=== PATIENT | female | born 2000 | race African-American/Black ===

== ENCOUNTER 2019-08-20 06:19 | Inpatient (IN) ==
[2019-08-20] MEDS ORDERED: BUTORPHANOL 1 MG/ML VIAL IV PRN (07:01)
[2019-08-20] MEDS ORDERED: MEPERIDINE 50 MG/1 ML VIAL IV PRN (07:01)
[2019-08-20] MEDS ORDERED: ONDANSETRON 4 MG/2 ML VIAL IV PRN (07:01)
[2019-08-20] MEDS ORDERED: BUTORPHANOL 2 MG/ML VIAL IV PRN (07:01)
[2019-08-20] MEDS ORDERED: DINOPROSTONE VAG GEL 10 MG SYRINGE VAG ONE ×2 (07:03→14:45)
[2019-08-20 07:27] LABS: Basophils % 0.3 % (0.0-0.8); Eosinophils # 0.2 10*3/uL (0.0-0.87); Eosinophils % 2.9 % (0.00-10.9); Hematocrit 35.2 VOL% (35.7-47.0); Hemoglobin 11.7 GM/DL (12.0-16.0); Immature Granulocytes % 1.5 %; Immature Granulocytes Absolute 0.09 #; Lymphocytes # 1.8 10*3/uL (1.4-4.0); Lymphocytes % 28.4 % (21.3-54.2); Mean Corpuscular HGB Conc 33.2 GM/DL (32-36); Mean Corpuscular Volume 95.7 FL (87-102); Mean Platelet Volume 10.3 FL (9.6-12.0); Monocytes % 6.8 % (1.7-12.7); Neutrophils % 60.1 % (38.7-73.9); Platelet Count 242 T/CUMM (130-400); Red Blood Count 3.68 MC/CUMM (3.8-5.5); Red Cell Distribution Width 13.4 % (9.3-17.3); White Blood Count 6.2 T/CUMM (4-12)
[2019-08-20 07:54] LABS: Albumin 2.4 G/DL (3.4-5.0); Bilirubin,Total 0.5 MG/DL (0.2-1.0); Calcium 8.3 MG/DL (8.5-10.1); Osmolality,Calculated 272.5 MOS/KG (273-304); Total Protein 6.2 G/DL (6.4-8.3); Uric Acid 4.7 MG/DL (2.6-6.0)
[2019-08-20] MEDS ORDERED: INFLUENZA VIRUS VACCINE 0.5 ML SYRINGE IM ONE (07:57)
[2019-08-20] MEDS ORDERED: OXYTOCIN/LR 20 UNIT/1,000 ML BAG IV SCH (14:00)
[2019-08-21] MEDS ORDERED: OXYTOCIN/LR 20 UNIT/1,000 ML BAG IV SCH
[2019-08-21] MEDS: LACTATED RINGERS 1,000 ML IV SCH ×3 (00:06→12:14)
[2019-08-21] MEDS ORDERED: ePHEDrine 50 MG/ML AMP IV PRN (09:26)
[2019-08-21] MEDS ORDERED: FAMOTIDINE 20 MG/2 ML VIAL IV ONE (09:26)
[2019-08-21] MEDS ORDERED: PROMETHAZINE 25 MG/1 ML VIAL IM ONE (09:26)
[2019-08-21] MEDS ORDERED: hydrOXYzine HCL 25 MG/1 ML VIAL IM PRN (09:26)
[2019-08-21] MEDS ORDERED: CITRIC ACID/SODIUM CITRATE 30 ML UDCUP PO ONE (09:26)
[2019-08-21] MEDS ORDERED: diphenhydrAMINE 50 MG/1 ML VIAL IV PRN ×2 (09:26)
[2019-08-21] MEDS ORDERED: NALOXONE 0.4 MG/ML VIAL IV PRN (09:26)
[2019-08-21] MEDS ORDERED: fentaNYL 2 MCG/ROPIV 0.2% EPID 100 ML EPIDURAL SCH (09:30)
[2019-08-21 13:21] LABS: Apearance,Urine CLEAR (Clear); Bacteria,Urine Occasional /HPF (Few); Bilirubin,Urine Negative (Negative); Blood, Urine Negative (Negative); Glucose,Urine (UA) Negative (Negative); Ketones,Urine 80 mg/dL (Negative); Mucus,Urine Many /LPF (Occasional); Nitrite,Urine Negative (Negative); Protein,Urine 100 MG/DL; RBC,Urine 5 /HPF (0-4); Squamous Epithelial Cell,Urine Occasional /HPF (0-10); Urine Specific Gravity 1.024 (1.001-1.035); WBC,Urine 1 /HPF (0-6)
[2019-08-21 13:22] LABS: Urine Color Yellow (Yellow)
[2019-08-21] MEDS ORDERED: OXYTOCIN/LR 0 UNIT/0 ML BAG IV ONE (15:35)
[2019-08-21] MEDS ORDERED: miSOPROStoL 200 MCG TABLET ONE (15:35)
[2019-08-21] MEDS ORDERED: METHYLERGONOVINE 0.2 MG/1 ML AMP ONE (15:36)
[2019-08-21] MEDS ORDERED: CARBOPROST TROMETHAMINE 250 MCG/ML AMP IM ONE (15:36)
[2019-08-21] MEDS ORDERED: OXYTOCIN/LR 30 UNIT/1,000 ML BAG IV ONE (15:36)
[2019-08-21] MEDS ORDERED: miSOPROStoL 200 MCG TABLET VAG ONE (17:11)
[2019-08-21 17:31] LABS: Cord Venous Blood PCO2 31.8 MMHG; Cord Venous Blood PO2 39.2 MMHG
[2019-08-21] MEDS ORDERED: DIPH/TET/ACEL PERT BOOSTER VACCINE 0.5 ML VIAL IM ONE (19:28)
[2019-08-21] MEDS ORDERED: WITCH HAZEL PADS 100/JAR TOP PRN (19:28)
[2019-08-21] MEDS ORDERED: oxyCODONE/ACETAMINOPHEN 5-325 MG TABLET PO PRN (19:28)
[2019-08-21] MEDS ORDERED: IBUPROFEN 800 MG TABLET PO PRN (19:28)
[2019-08-21] MEDS ORDERED: ACETAMINOPHEN 325 MG TABLET PO PRN (19:28)
[2019-08-21] MEDS ORDERED: MEASLES/MUMPS/RUBELLA VACCINE 0.5 ML VIAL SUBCUT ONE (19:28)
[2019-08-21] MEDS ORDERED: HYDROCORTISONE 2.5% RECTAL CREAM 30 GM TUBE TOP PRN (19:28)
[2019-08-21] MEDS ORDERED: LANOLIN 50% CREAM 0.3 OZ TUBE TOP PRN (19:28)
[2019-08-21] MEDS ORDERED: RHO(D) IMMUNE GLOBULIN 300 MCG SYRINGE IM ONE (19:28)
[2019-08-21] MEDS ORDERED: BENZOCAINE 20%/MENTHOL 0.5% SPRAY 56 GM CAN TOP PRN (19:28)
[2019-08-21] MEDS ORDERED: BISACODYL 10 MG SUPP RECTAL PRN (19:28)
[2019-08-21] MEDS: DOCUSATE SODIUM 100 MG CAPSULE PO SCH (20:50)
[2019-08-22] MEDS: oxyCODONE/ACETAMINOPHEN 5-325 MG TABLET PO PRN ×2 (06:09→14:39)
[2019-08-22] MEDS: DOCUSATE SODIUM 100 MG CAPSULE PO SCH ×2 (09:17→22:01)
[2019-08-22 10:01] LABS: Basophils % 0.2 % (0.0-0.8); Eosinophils # 0.1 10*3/uL (0.0-0.87); Eosinophils % 0.8 % (0.00-10.9); Hemoglobin 10.1 GM/DL (12.0-16.0); Immature Granulocytes % 1.5 %; Immature Granulocytes Absolute 0.18 #; Lymphocytes # 1.7 10*3/uL (1.4-4.0); Lymphocytes % 14.7 % (21.3-54.2); Mean Corpuscular HGB Conc 32.6 GM/DL (32-36); Mean Corpuscular Volume 97.2 FL (87-102); Mean Platelet Volume 10.5 FL (9.6-12.0); Monocytes % 5.9 % (1.7-12.7); Neutrophils % 76.9 % (38.7-73.9); Platelet Count 216 T/CUMM (130-400); Red Blood Count 3.19 MC/CUMM (3.8-5.5); Red Cell Distribution Width 13.2 % (9.3-17.3); White Blood Count 11.6 T/CUMM (4-12)
[2019-08-23] MEDS: oxyCODONE/ACETAMINOPHEN 5-325 MG TABLET PO PRN (03:15)
[2019-08-23] MEDS: DOCUSATE SODIUM 100 MG CAPSULE PO SCH (09:12)
[2019-08-23 13:41] VITALS: BP 126/72
== END 2019-08-23 13:00 | disposition home or self-care (01) | DRG 560 ==
LOC: N.LDOUT 06:19 → N.LD 06:21 → N.OB 08-22 09:26
PROVIDERS: ADMIT Obstetrics & Gynecology; ATTEND Obstetrics & Gynecology

== ENCOUNTER 2020-09-29 02:59 | Inpatient (IN) ==
[2020-09-29] MEDS ORDERED: MEPERIDINE 50 MG/1 ML VIAL IV PRN (03:21)
[2020-09-29] MEDS ORDERED: ONDANSETRON 4 MG/2 ML VIAL IV PRN (03:21)
[2020-09-29] MEDS ORDERED: FAMOTIDINE 20 MG/2 ML VIAL IV PRN (03:21)
[2020-09-29] MEDS ORDERED: BUTORPHANOL 2 MG/ML VIAL IV PRN (03:21)
[2020-09-29] MEDS ORDERED: OXYTOCIN/LR 20 UNIT/1,000 ML BAG IV SCH (03:30)
[2020-09-29] MEDS ORDERED: CITRIC ACID/SODIUM CITRATE 30 ML UDCUP ONE (03:40)
[2020-09-29] MEDS ORDERED: fentaNYL 2 MCG/ROPIV 0.2% EPID 100 ML EPIDURAL ONE (03:40)
[2020-09-29] MEDS ORDERED: ePHEDrine 50 MG/ML VIAL ONE (03:41)
[2020-09-29 03:47] LABS: Basophils % 0.5 % (0.0-0.8); Eosinophils # 0.3 10*3/uL (0.0-0.87); Eosinophils % 3.1 % (0.00-10.9); Hematocrit 36.6 VOL% (35.7-47.0); Hemoglobin 12.6 GM/DL (12.0-16.0); Immature Granulocytes % 1.5 %; Immature Granulocytes Absolute 0.13 #; Lymphocytes # 2.3 10*3/uL (1.4-4.0); Lymphocytes % 26.9 % (21.3-54.2); Mean Corpuscular HGB Conc 34.4 GM/DL (32-36); Mean Corpuscular Volume 98.1 FL (87-102); Monocytes % 3.8 % (1.7-12.7); Neutrophils % 64.2 % (38.7-73.9); Platelet Count 232 T/CUMM (130-400); Red Blood Count 3.73 MC/CUMM (3.8-5.5); Red Cell Distribution Width 15.3 % (9.3-17.3); White Blood Count 8.7 T/CUMM (4-12)
[2020-09-29 04:09] LABS: Albumin 2.8 G/DL (3.4-5.0); Bilirubin,Total 0.5 MG/DL (0.2-1.0); Calcium 8.3 MG/DL (8.5-10.1); Osmolality,Calculated 270.7 MOS/KG (273-304); Total Protein 6.9 G/DL (6.4-8.3)
[2020-09-29] MEDS: LACTATED RINGERS 1,000 ML IV SCH ×2 (04:13→08:21)
[2020-09-29] MEDS ORDERED: CITRIC ACID/SODIUM CITRATE 30 ML UDCUP PO ONE (04:15)
[2020-09-29 04:30] LABS: Hepatitis B Surface Ag Quant < 0.10 Index; Hepatitis B Surface Ag Result Negative (Negative)
[2020-09-29 05:00] LABS: HIV Antigen/Antibody Result Nonreactive (Nonreactive)
[2020-09-29] MEDS ORDERED: ACETAMINOPHEN 500 MG TABLET PO PRN (05:16)
[2020-09-29 07:05] LABS: Bacteria,Urine Occasional /HPF (Few); Bilirubin,Urine Negative (Negative); Blood, Urine Negative (Negative); Glucose,Urine (UA) 50 mg/dL (Negative); Granular Casts,Urine 5 /LPF (0-1); Hyaline Casts,Urine 1 /LPF (0-3); Ketones,Urine 20 mg/dL (Negative); Mucus,Urine Few /LPF (Occasional); Nitrite,Urine Negative (Negative); Protein,Urine 100 MG/DL; RBC,Urine 1 /HPF (0-4); Renal Epithelial Cells,Urine Occasional /HPF (<1); Squamous Epithelial Cell,Urine Occasional /HPF (0-10); Urine Appearance CLEAR (Clear); Urine Color Yellow (Yellow); Urine Specific Gravity 1.014 (1.001-1.035); WBC,Urine 2 /HPF (0-6)
[2020-09-29] MEDS ORDERED: LIDOCAINE 1% 50 ML VIAL ONE (12:11)
[2020-09-29] MEDS ORDERED: miSOPROStoL 200 MCG TABLET ONE (12:11)
[2020-09-29] MEDS ORDERED: METHYLERGONOVINE 0.2 MG/1 ML AMP ONE (12:12)
[2020-09-29 14:01] LABS: Cord Venous Blood HCO3 22.2 MMOL/L; Cord Venous Blood PO2 35.7
[2020-09-29] MEDS ORDERED: IBUPROFEN 800 MG TABLET PO ONE (15:13)
[2020-09-29] MEDS ORDERED: OXYTOCIN/LR 20 UNIT/1,000 ML BAG IV ONE ×2 (16:18→16:52)
[2020-09-29] MEDS ORDERED: DIPH/TET/ACEL PERT BOOSTER VACCINE 0.5 ML VIAL IM ONE (16:52)
[2020-09-29] MEDS ORDERED: BISACODYL 10 MG SUPP RECTAL PRN (16:52)
[2020-09-29] MEDS ORDERED: oxyCODONE/ACETAMINOPHEN 5-325 MG TABLET PO PRN (16:52)
[2020-09-29] MEDS ORDERED: LANOLIN 50% CREAM 0.3 OZ TUBE TOP PRN (16:52)
[2020-09-29] MEDS ORDERED: ACETAMINOPHEN 325 MG TABLET PO PRN (16:52)
[2020-09-29] MEDS ORDERED: BENZOCAINE 20%/MENTHOL 0.5% SPRAY 56 GM CAN TOP PRN (16:52)
[2020-09-29] MEDS ORDERED: HYDROCORTISONE 2.5% RECTAL CREAM 30 GM TUBE TOP PRN (16:52)
[2020-09-29] MEDS ORDERED: MEASLES/MUMPS/RUBELLA VACCINE 0.5 ML VIAL SUBCUT ONE (16:52)
[2020-09-29] MEDS ORDERED: WITCH HAZEL PADS 100/JAR TOP PRN (16:52)
[2020-09-29] MEDS ORDERED: RHO(D) IMMUNE GLOBULIN 300 MCG SYRINGE IM ONE (16:52)
[2020-09-29] MEDS: oxyCODONE/ACETAMINOPHEN 5-325 MG TABLET PO PRN ×2 (17:10→22:41)
[2020-09-29] MEDS: DOCUSATE SODIUM 100 MG CAPSULE PO SCH ×2 (19:39→21:45)
[2020-09-29] MEDS: IBUPROFEN 800 MG TABLET PO PRN (21:45)
[2020-09-30] MEDS: IBUPROFEN 800 MG TABLET PO PRN ×3 (04:26→16:59)
[2020-09-30] MEDS: oxyCODONE/ACETAMINOPHEN 5-325 MG TABLET PO PRN ×4 (04:27→23:05)
[2020-09-30 04:40] LABS: Basophils % 0.1 % (0.0-0.8); Eosinophils % 0.2 % (0.00-10.9); Hematocrit 30.7 VOL% (35.7-47.0); Hemoglobin 10.1 GM/DL (12.0-16.0); Immature Granulocytes % 1.8 %; Immature Granulocytes Absolute 0.16 #; Lymphocytes # 1.7 10*3/uL (1.4-4.0); Lymphocytes % 18.9 % (21.3-54.2); Mean Corpuscular HGB Conc 32.9 GM/DL (32-36); Mean Corpuscular Volume 99.7 FL (87-102); Platelet Count 199 T/CUMM (130-400); Red Blood Count 3.08 MC/CUMM (3.8-5.5); Red Cell Distribution Width 15.1 % (9.3-17.3); White Blood Count 8.7 T/CUMM (4-12)
[2020-09-30] MEDS: DOCUSATE SODIUM 100 MG CAPSULE PO SCH ×2 (08:21→21:03)
[2020-09-30] MEDS: FERROUS SULFATE 325 MG TABLET PO SCH (08:21)
[2020-10-01] MEDS: IBUPROFEN 800 MG TABLET PO PRN ×2 (00:59→10:29)
[2020-10-01] MEDS: oxyCODONE/ACETAMINOPHEN 5-325 MG TABLET PO PRN (05:51)
[2020-10-01 07:14] VITALS: BP 126/67
[2020-10-01] MEDS: FERROUS SULFATE 325 MG TABLET PO SCH (08:21)
[2020-10-01] MEDS: DOCUSATE SODIUM 100 MG CAPSULE PO SCH (08:21)
== END 2020-10-01 11:05 | disposition home or self-care (01) | DRG 560 ==
LOC: N.LDOUT 02:59 → N.LD 03:02 → N.OB 16:44
PROVIDERS: ADMIT Obstetrics & Gynecology; ATTEND Obstetrics & Gynecology

== ENCOUNTER 2020-10-02 20:02 | Observation (INO) ==
[2020-10-02] MEDS ORDERED: ONDANSETRON 4 MG/2 ML VIAL IV ONE (21:17)
[2020-10-02] MEDS ORDERED: MORPHINE 4 MG/1 ML VIAL IV STA (21:17)
[2020-10-02] MEDS ORDERED: SODIUM CHLORIDE 0.9% 1,000 ML IV STA (21:17)
[2020-10-02] MEDS ORDERED: ONDANSETRON 4 MG/2 ML VIAL IV PRN (22:57)
[2020-10-02] MEDS ORDERED: DEXTROSE 5% LACTATED RINGERS 1,000 ML IV SCH (23:00)
[2020-10-02] MEDS ORDERED: KETOROLAC 30 MG/1 ML VIAL IV PRN (23:05)
[2020-10-03 01:13] VITALS: BP 125/87
[2020-10-03 02:32] LABS: Bacteria,Urine Occasional /HPF (Few); Bilirubin,Urine Negative (Negative); Blood, Urine Large mg/dL (Negative); Glucose,Urine (UA) Negative (Negative); Ketones,Urine Negative (Negative); Mucus,Urine Occasional /LPF (Occasional); Nitrite,Urine Negative (Negative); Protein,Urine Negative; RBC,Urine 349 /HPF (0-4); Squamous Epithelial Cell,Urine Occasional /HPF (0-10); Urine Appearance CLEAR (Clear); Urine Color Yellow (Yellow); Urine Specific Gravity 1.011 (1.001-1.035); Urine Urobilinogen < 2.0 EU/DL (0.2-1.0); WBC,Urine 12 /HPF (0-6)
[2020-10-03 06:33] LABS: Basophils % 0.3 % (0.0-0.8); Eosinophils # 0.1 10*3/uL (0.0-0.87); Eosinophils % 1.1 % (0.00-10.9); Hematocrit 31.7 VOL% (35.7-47.0); Hemoglobin 10.7 GM/DL (12.0-16.0); Immature Granulocytes % 1.6 %; Immature Granulocytes Absolute 0.12 #; Lymphocytes # 2.2 10*3/uL (1.4-4.0); Mean Corpuscular HGB Conc 33.8 GM/DL (32-36); Mean Corpuscular Volume 100.6 FL (87-102); Mean Platelet Volume 9.2 FL (9.6-12.0); Monocytes % 5.4 % (1.7-12.7); NRBC # 0.02 10*3/uL; Neutrophils % 62.6 % (38.7-73.9); Platelet Count 229 T/CUMM (130-400); Red Blood Count 3.15 MC/CUMM (3.8-5.5); White Blood Count 7.4 T/CUMM (4-12)
[2020-10-03 07:00] LABS: Albumin 2.2 G/DL (3.4-5.0); Bilirubin,Total 0.6 MG/DL (0.2-1.0); Calcium 7.9 MG/DL (8.5-10.1); Osmolality,Calculated 277.1 MOS/KG (273-304); Total Protein 5.5 G/DL (6.4-8.3)
== END 2020-10-03 10:48 | disposition home or self-care (01) ==
LOC: N.ED 20:02 → N.EDINP 20:02 → N.LD 10-03 01:02
PROVIDERS: ADMIT Obstetrics & Gynecology; ATTEND Obstetrics & Gynecology